=== PATIENT | female | born 1960 | race Caucasian/White ===

== ENCOUNTER 2016-08-11 12:55 | Inpatient (IN) | payer OTHER ==
--- NOTE | ~2016-08-11 | DS ---
Discharge Summary [facility] [address] [place]. [address] NAME: CECI DOUGHERTY : 56 STATUS : DIS IN PAT#: [id number] AGE: 56 ADM/REG DATE : 08/11/16 MR#: [id number] REPORT SERV DATE: 08/26/16 DICTATED BY: LIONEL MONROY DATE: 08/17/16 REPORT STATUS : Draft TRANSCRIBED BY: MODL DATE: 08/17/16 ADMISSION DATE: 08/11/2016 DISCHARGE DATE: HOSPITAL COURSE: This dictation is in addition to interim discharge summary dictated by Dr. John Bolton on 08/16/2016. In addition, I assumed care of the patient today 08/17/2016. At the time of my assumption of care, the patient was hemodynamically stable and awaiting placement at SNF. Approval has been received from insurance [employer] and the patient has been accepted by [facility]. Also, as of yesterday, the patient still had a drain in place which has subsequently been discontinued by Cardiothoracic Surgery. The patient has remained hemodynamically stable. Given clearance by Cardiothoracic Surgery, the patient will be discharged to rehab today to follow up with consultants as outpatient. Plan has been discussed with the patient, who voices understanding and who is agreeable with this plan. DISCHARGE DIAGNOSES: 1. Recurrent lung cancer stage IV. 2. Malignant pericardial effusion. 3. Coronary artery disease. 4. Hypertension. 5. Hypothyroidism. 6. History of breast cancer. DISCHARGE EXAM: GENERAL: The patient is lying in bed, in no acute distress. Appears stated age. HEENT: Normocephalic and atraumatic. Extraocular motors intact. Moist oral mucosa. NECK: Trachea midline and symmetric. No JVD noted. No thyromegaly present. CHEST: Clean surgical site noted. No erythema or evidence of infection. CARDIOVASCULAR: Regular rate and rhythm. S1, S2. I do not appreciate any murmurs. LUNGS: Normal respiratory effort with equal chest expansion. ABDOMEN: Positive bowel sounds. Nontender. Nondistended. EXTREMITIES: No cyanosis, no clubbing, no edema. NEUROLOGIC: Alert and oriented x3. No focal deficits appreciated. DISCHARGE MEDICATIONS: Aspirin 81 mg p.o. daily, Dulcolax 10 mg p.o. daily, Bumex 1 mg p.o. twice a day, carvedilol 12.5 mg p.o. twice a day, Synthroid 25 mcg p.o. daily, Nexium 40 mg p.o. daily, MiraLAX powder one pack p.o. daily, valacyclovir 1 g p.o. three times a day, Effexor 150 mg p.o. daily, warfarin 2.5 mg p.o. daily, zinc sulfate 220 mg p.o. daily, DuoNebs 3 mL inhalation q.4 hours, Flexeril 10 mg p.o. three times a day, rosuvastatin 10 mg p.o. at bedtime. DISPOSITION: The patient will be discharged to rehab. ACTIVITY: As tolerated. DIET: As tolerated. Discharge Summary [address] [address] NAME: CECI DOUGHERTY : 56 STATUS : DIS IN PAT#: [id number] AGE: 56 ADM/REG DATE : 08/11/16 MR#: [id number] REPORT SERV DATE: 08/26/16 DICTATED BY: LIONEL MONROY DATE: 08/17/16 REPORT STATUS : Draft TRANSCRIBED BY: BERLIN DATE: 08/17/16 Greater than 30 minutes was spent coordinating care, providing counseling, medication reconciliation, review of the chart. ADDENDUM Correction: The patient was accepted by Physical Facility, however, insurance approval was still pending. Insurance approval has been received today. The patient is cleared to be discharged to [facility]. All other information on the discharge summary remains the same. Greater than 30 minutes was spent coordinating care, dictation of note, medication reconciliation. DICTATED BY: MD BIMAL Roberts/BERLIN Lionel Monroy MD / [id number] / [id number] CC: MD Panda Roberts M.D. [facility]
--- NOTE | ~2016-08-11 | OP ---
Record Of Operation [facility] [address] [place]. [address] NAME: CECI DOUGHERTY : 56 STATUS : ADM IN [facility]#: [id number] AGE: 56 ADM/REG DATE : 08/11/16 MR#: [id number] REPORT SERV DATE: 08/12/16 DICTATED BY: MICHELE CARLOS DATE: 08/12/16 REPORT STATUS : Draft TRANSCRIBED BY: MODL DATE: 08/12/16 DATE OF PROCEDURE: 08/12/2016 ATTENDING PHYSICIAN: Michele Carlos MD ASSISTANTS: Reji Adkins. REFERRING PHYSICIAN: Surendra Tellez M.D. PREOPERATIVE DIAGNOSES: 1. Large pericardial effusion with impending tamponade. 2. History of right upper lobe lung cancer. 3. History of left breast cancer. POSTOPERATIVE DIAGNOSES: 1. Large pericardial effusion with impending tamponade. 2. History of right upper lobe lung cancer. 3. History of left breast cancer. OPERATION AND PROCEDURE PERFORMED: 1. Subxiphoid pericardial window. 2. Transesophageal echo. COMPLICATIONS: None. ESTIMATED BLOOD LOSS: Minimal. INTRAOPERATIVE FINDINGS: 610 mL of sanguinous pericardial fluid. No studding of the pericardium or the epicardium. A 24-Khmer Jass was left in the pericardial space. INDICATIONS FOR PROCEDURE: Ms. Dougherty is a 56-year-old female with a recent stroke who was discovered to have a large pericardial effusion after she received echocardiogram to look for the etiology of her stroke. She was felt to have pending tamponade type physiology and was transferred from [facility] for further evaluation and treatment. She underwent chest CT, which demonstrated a large circumferential pericardial effusion and an enlarged cardiac silhouette. No large pleural effusion was seen. The patient was seen and evaluated. Risks, benefits, and alternatives were discussed including but not limited to bleeding, infection, stroke, , heart attack, need for future operations. All questions were answered. DETAILS OF PROCEDURE: The patient was brought to the operating room, placed supine on the operating room table. After satisfactory induction of general endotracheal anesthesia, she was prepped and draped in usual sterile fashion. She tolerated the anesthesia and induction well. After she was prepped, a 3 cm incision was made over the xiphoid. Skin and subcutaneous tissues were divided, clavipectoral fascia was divided. The linea alba was divided in the midline. The xiphoid was split, retractor was placed under the xiphoid in Record Of Operation [address] [place]. [address] NAME: CECI DOUGHERTY : 56 STATUS : ADM IN [facility]#: [id number] AGE: 56 ADM/REG DATE : 08/11/16 MR#: [id number] REPORT SERV DATE: 08/12/16 DICTATED BY: MICHELE CARLOS DATE: 08/12/16 REPORT STATUS : Draft TRANSCRIBED BY: BERLIN DATE: 08/12/16 the bottom portion of sternum and elevated and dissection was carried up to the pericardium. Pericardium was grasped, elevated, nicked, and sanguinous fluid was removed, approximately 610 mL in total. Fluid was sent for Gram stain, culture, and cytology. The fluid was evacuated. A quarter size piece of pericardium was excised and sent for pathology. A 24- Khmer Jass was placed in the pericardial space and exteriorized. Tap block was then used to anesthetize the incision, and the fascial incision was closed with a running #1 Stratafix, subcutaneous tissue was closed with a continuation of the running #1 Stratafix, and skin closed with 2-0 Quill. Dry sterile dressings were placed. Chest tube was placed to a bottle, and she was extubated and taken to PACU in satisfactory condition. [facility]/[place] Michele Carlos MD / [id number] CC: Ansley Carranza M.D. Andrew H Fowler, M.D.
--- NOTE | ~2016-08-11 | IDS ---
Interim Discharge Summary [facility] [address] [place]. [address] NAME: CECI DOUGHERTY : 56 STATUS : ADM IN PAT#: [id number] AGE: 56 ADM/REG DATE : 08/11/16 MR#: [id number] REPORT SERV DATE: 08/16/16 DICTATED BY: CASEY AVENDANO DATE: 08/16/16 REPORT STATUS : Draft TRANSCRIBED BY: MODL DATE: 08/16/16 ADMISSION DATE: 08/11/2016 DISCHARGE DATE: CURRENT HOSPITAL DIAGNOSES: 1. Pericardial effusion status post window. 2. Recurrent lung cancer. 3. CVA. 4. History of breast cancer. 5. Hypertension. 6. Hypothyroidism. CONSULTATIONS: Cardiothoracic Surgery, Cardiology, and Neurology. PROCEDURES: As listed in interim summary on 08/12/2016, with the addition of a pericardial window. CURRENT PHYSICAL FINDINGS AND HISTORY OF PRESENT ILLNESS: Please see initial dictated H and P on 08/10/2016, as well as discharge summary on 08/12/2016, from [facility]. Dictation will continue from that time. Basically, the patient was transferred for further evaluation and treatment of a pericardial effusion with previous history of colon and breast cancer on 08/11/2016. The patient had been seen by Cardiology, had an echocardiogram performed. There was no tamponade, but recommendations were to consult Cardiothoracic Surgery for possible pericardial window. The patient was transferred here on 08/11/2016 and underwent evaluation additionally by Neurology as she was found to have multiple CVAs on evaluation over at [facility]. PT/OT was consulted and the patient progressed well with that. She underwent the pericardial window without difficulty. She still has a drain in place. Pathology was submitted, which has since come back as probable recurrent lung carcinoma but final stains are pending. The patient continues with PT/OT and is hoping for placement at [facility] soon. Cardiology recommended starting Coumadin anticoagulation given her pattern of emboli concerned for embolic. This has been started. Oncology has been consulted and will follow up outpatient. DISPOSITION: The patient is currently awaiting placement at rehab and remove liver drain. TLF/MODL Casey Avendano M.D. / [id number] CC: Interim Discharge Summary [address] [address] NAME: CECI DOUGHERTY : 56 STATUS : ADM IN PAT#: [id number] AGE: 56 ADM/REG DATE : 08/11/16 MR#: [id number] REPORT SERV DATE: 08/16/16 DICTATED BY: CASEY AVENDANO DATE: 08/16/16 REPORT STATUS : Draft TRANSCRIBED BY: MODL DATE: 08/16/16 Ansley Carranza M.D.
--- NOTE | ~2016-08-11 | CN ---
Consultation Report [address] [place]. [address] NAME: CECI DOUGHERTY : 56 STATUS : ADM IN PAT#: [id number] AGE: 56 ADM/REG DATE : 08/11/16 MR#: [id number] REPORT SERV DATE: 08/12/16 DICTATED BY: ROSALBA SANTOS DATE: 08/11/16 REPORT STATUS : Draft TRANSCRIBED BY: MODL DATE: 08/11/16 CONSULT REPORT DATE OF CONSULTATION: 08/11/2016 REASON FOR CONSULTATION: Pericardial effusion. HISTORY OF PRESENT ILLNESS: This is a pleasant 56-year-old female with extensive past medical history as listed below. She presents to the emergency room at [facility] yesterday with slurred speech, facial droop, and left upper extremity weakness. She was found also be slightly hyponatremia. MRI of the brain showed multiple bilateral cerebral infarcts as well as a larger lacunar infarct in the right thalamus. Carotid ultrasound was normal, but echocardiogram today showed a large circumferential pericardial effusion with significant increased pericardial pressures, but no obvious tamponade. She did have a bubble study which was negative. Cardiothoracic Surgery was asked to evaluate the patient for urgent pericardial window, suspecting advancement to full-blown tamponade soon. Currently, the patient is resting quietly with no complaints of shortness of breath or chest pain. She does report a "splitting headache" without any other neurological deficits like difficulty speaking or blurred vision. PAST MEDICAL HISTORY: Coronary artery disease with prior stent, GERD, anxiety, depression, hypertension, hypothyroidism, breast cancer status post mastectomy, restless legs syndrome, lung cancer status post right upper lobe lobectomy in 2013. PAST SURGICAL HISTORY: Right upper lobe lobectomy [place] [address] Maykel Cox. Cardiac stent 20 years ago and bilateral mastectomies. SOCIAL HISTORY: She is . Denies any history of alcohol use or illicit drugs. She does report frequent use of tobacco. FAMILY HISTORY: Reviewed and noncontributory. ALLERGIES: SHE REPORTS AN ALLERGY TO CODEINE. HOME MEDICATIONS: Aspirin 81 mg p.o. daily, Bumex 1 mg p.o. daily, Coreg 12.5 mg p.o. twice a day, Klonopin 1 mg p.o. twice a day as needed, Flexeril 10 mg p.o. three times a day as needed, Nexium 40 mg p.o. daily, Synthroid 25 mcg p.o. daily, Benicar hydrochlorothiazide 40/12.5 one tablet p.o. daily, Crestor 10 mg p.o. at bedtime, Valtrex 1 g p.o. three times a day, Effexor 150 mg p.o. daily, and Ambien 10 mg p.o. at bedtime. REVIEW OF SYSTEMS: A 10-point review of systems was obtained and is negative other than HPI. PHYSICAL EXAMINATION: Consultation Report [id number] [facility] [place]. [address] NAME: CECI DOUGHERTY : 56 STATUS : ADM IN PAT#: [id number] AGE: 56 ADM/REG DATE : 08/11/16 MR#: [id number] REPORT SERV DATE: 08/12/16 DICTATED BY: ROSALBA SANTOS DATE: 08/11/16 REPORT STATUS : Draft TRANSCRIBED BY: BERLIN DATE: 08/11/16 VITAL SIGNS: From today, temperature 98.2, heart rate 81, blood pressure 151/67, respiratory rate 18, and O2 saturation 97% on 2 L. GENERAL: Pleasant female, in no acute distress. NEURO: Alert and oriented x3. Pupils are equal, round, reactive to light and accommodation. She does exhibit decreased strength bilaterally, but this is much more noticeable in her left upper extremity and left lower extremity. No obvious signs of facial droop. HEENT: Head normocephalic and atraumatic. Sclerae clear. Nose is midline with no abnormalities. Teeth with good dentition overall. Ears with no abnormalities. LUNGS: Clear to auscultation bilaterally with normal effort. CARDIAC: S1, S2. No murmurs, rubs, or gallops. Regular rate and rhythm. ABDOMEN: Soft, nontender with active bowel sounds. EXTREMITIES: Free of cyanosis, clubbing, or edema. LABORATORY DATA: White blood cell count 8.2, hemoglobin 9.6, hematocrit 28.3, platelets 295. Sodium 134, potassium 4.3, chloride 97, bicarbonate 28, BUN 19, creatinine 1.0, glucose 95. ASSESSMENT AND PLAN: This is a 56-year-old female with extensive past medical history significant for breast cancer, lung cancer, coronary artery disease, hypertension, and ongoing tobacco abuse. She presented to [place] emergency room yesterday with neurological symptoms. MRI showed acute embolic CVA. Echocardiogram today showed a circumferential pericardial effusion with negative bubble study concerning for advancement to cardiac tamponade. The patient will need to undergo urgent pericardial window. We will plan this tomorrow morning at 7:30 in the morning. I discussed the procedure with the patient as well as the indication and options. We also discussed risks and benefits of surgery as well as expectations for recovery and followup. The patient is agreeable to proceed. Would like to get a CT scan of the chest without contrast today to evaluate for any other chest or lung abnormalities. We appreciate the referral and look forward to helping and take care of Ms. Ccei Dougherty. LATASHA/BERLIN Rosalba Santos NP / [id number] CC: John Bolton M.D.
--- NOTE | ~2016-08-11 | CN ---
Consultation Report [facility] [address] [place]. [address] NAME: CECI DOUGHERTY : 56 STATUS : ADM IN PAT#: [id number] AGE: 56 ADM/REG DATE : 08/11/16 MR#: [id number] REPORT SERV DATE: 08/11/16 DICTATED BY: IVETTE BORWN DATE: 08/11/16 REPORT STATUS : Draft TRANSCRIBED BY: MODCelso DATE: 08/11/16 NEUROLOGY CONSULTATION DATE OF CONSULTATION: 08/11/2016 REASON FOR CONSULTATION: Stroke. HOSPITALIST: John Bolton M.D. DIRECTOR OF STRATEGIC SOURCING: Moris Blair M.D. HISTORY OF PRESENT ILLNESS: The patient is a 56-year-old female, who was admitted to [facility] yesterday, due to sudden onset of slurred speech, left facial droop, and left arm weakness. She stated that her symptoms started suddenly that morning and she also had an associated right-sided headache. She had an MRI over at [facility] which showed embolic stroke. She was brought over to [facility] for further testing. Today, she underwent a transthoracic echocardiogram which showed an LVEF of 50%, large pericardial effusion, with right atrial free wall inversion, and she had a negative bubble study. Because of the large effusion, the patient will undergo a pericardial window with transesophageal echocardiogram tomorrow. The patient mentions that she has had severe headache since this morning, on a Likert scale of 0-10, she rates it a 7/10. She denies any photophobia or phonophobia. She just has pressure primarily in the frontal region. She has no associated nausea and vomiting. PAST MEDICAL HISTORY: GERD, hypothyroidism, anxiety, depression, coronary artery disease, hypertension, breast cancer, lung cancer, restless legs syndrome, and HSV. PAST SURGICAL HISTORY: Status post PCI, status post bilateral mastectomy, status post right upper lobe lobectomy. HOME MEDICATIONS: Aspirin 81 mg daily, Bumex 1 mg b.i.d., Coreg 12.5 mg b.i.d., Klonopin 1 mg b.i.d. p.r.n., Flexeril 10 mg t.i.d. p.r.n., Nexium 40 mg daily, levothyroxine 25 mcg daily, Benicar HCT 40/12.5 mg daily, Crestor 10 mg at bedtime, Valtrex 1 g t.i.d., Effexor 150 mg daily, and Ambien 10 mg p.o. at bedtime p.r.n. ALLERGIES: CODEINE. SOCIAL HISTORY: The patient is . She has one child. She works as a bulk delivery driver. She smokes. She occasionally have an alcoholic beverage and denies use of recreational drugs. FAMILY HISTORY: The patient's mother at 65 from lung cancer. Her father at the age of 52 from an CO. She has two sisters, who are alive and healthy. Consultation Report [id number] [facility] [place]. [address] NAME: CECI DOUGHERTY : 56 STATUS : ADM IN [facility]#: [id number] AGE: 56 ADM/REG DATE : 08/11/16 MR#: [id number] REPORT SERV DATE: 08/11/16 DICTATED BY: IVETTE BROWN DATE: 08/11/16 REPORT STATUS : Draft TRANSCRIBED BY: BERLIN DATE: 08/11/16 REVIEW OF SYSTEMS: For pertinent positives, please see HPI. PHYSICAL EXAMINATION: VITAL SIGNS: The patient is a 56-year-old female, who stands 5 feet tall, and weighs 157 pounds. She is slightly febrile with a temperature of 99 degrees, heart rate 90, respiratory rate 18, O2 saturations on room air 97%, blood pressure 167/89. NEURO: The patient appears to be in moderate discomfort. She is oriented x4. She communicates appropriately. She is slightly dysarthric. Pupils are 3 mm. PERRLA. The patient does have left facial droop. Slight tongue deviation to the left. No reported sensory deficits in the trigeminal region. [id number] reveals slight ataxia bilaterally. No pronator drift. The patient has some weakness in the upper extremities on the left, it is 3/5. Right is 5/5. Diminished DTRs on the left 1+ compared to the right which is 2+. No reported sensory loss in the upper extremities. Lower extremities, strength is 3/5 on the left, compared to a 5/5 on the right. Unable to elicit patellar reflex on the left. Downgoing toes on the left. Patellar reflex on the right is 2+, downgoing toes on the left. No reported sensory deficits. There is no extinction noted. Peripheral vision via confrontation is full on both louise. Funduscopic exam, positive red reflex bilaterally. Normal disc cup ratio. No nicking, hemorrhaging, or papillary edema. NECK: No carotid bruits, JVD, or thyromegaly. CHEST: Lung sounds relatively clear. No cough. CARDIAC: Regular rate and rhythm. LABORATORY DATA: CBC is normal. BMP normal. Troponin 1.01, TSH 4.66. Cholesterol values are within normal range. MRI of the brain shows a cavernous angioma signal hyperintensities in the right thalamic region, left occipital, and bilateral cerebellar areas resulting in multiple emboli. MRA of the head and neck unremarkable. Echocardiogram, LVEF 50%, large pericardial effusion. Negative bubble, right atrium shows free wall inversion. NIH Stroke Scale total is 5. ASSESSMENT/PLAN: 1. Embolic stroke. Etiology unknown at this time. The patient is on aspirin, Plavix, and Lipitor. After speaking with Cardiothoracic Surgery, the patient's Plavix will be held for a pericardial window procedure tomorrow. PT, OT, and rehab will be consulted. Additional lab work will be checked to rule out anything autoimmune. 2. Severe headache, the patient will be given a Depakote cocktail. 3. Pericardial effusion. This will be managed per Cardiology and CT surgery. 4. Etiology of stroke is unknown. The patient may undergo loop recorder implantation prior to discharge. CLAUDIA/BERLIN Ivette Garcia Consultation Report [address] [address] NAME: CECI DOUGHERTY : 56 STATUS : ADM IN [facility]#: [id number] AGE: 56 ADM/REG DATE : 08/11/16 MR#: [id number] REPORT SERV DATE: 08/11/16 DICTATED BY: IVETTE BROWN DATE: 08/11/16 REPORT STATUS : Draft TRANSCRIBED BY: MODL DATE: 08/11/16 MOISES Brown, MADELINEP- / [id number] CC: John Bolton M.D. Ansley Duarte M.D.
[~2016-08-11 12:55] MED LIST: AMB10 PO; ASA5GR PO; ASAB PO; BENICAR HCT1 TA1 PO; BENICAR HCT1 TA2 PO; BUM1 PO; CALGLUCTAB PO; CHANTIX1 PO; COREG12 PO; CRESTOR10 PO; DIOVAN HCT320 MG/25 PO; EFFEX37.5 PO; EFFEXOR100 MG PO; FLEX PO; IRON325 MG PO; KDUR20 PO; KLONO1 PO; LEVOTHYROXIN25 MCG PO; LIPITOR10 PO; LORTAB 5 PO; MIRAPEX5 PO; NEXIUM40 PO; PCET PO; SYN.025B PO; VALTREX1 GM PO; VALTREX5 PO; VITD PO; X25 PO
[2016-08-11 17:52] LABS: C-REACTIVE PROTEIN 91.2 MG/L (<8.0)
[2016-08-12 05:50] LABS: BASOPHILS 0.5 %; BASOPHILS ABSOLUTE 0.04 10/3/uL (0.0-0.16); EOSINOPHILS 1.1 %; EOSINOPHILS ABSOLUTE 0.09 10/3/uL (0.0-0.53); HEMOGLOBIN 8.4 g/dL (12.0-16.0); IMMATURE GRANULOCYTES 0.5 %; IMMATURE GRANULOCYTES ABSOLUTE 0.04 10/3/uL (0.0-0.11); LYMPHOCYTES 18.2 %; LYMPHOCYTES ABSOLUTE 1.48 10/3/uL (0.67-4.30); MEAN CORPUS HGB CONC 34.1 g/dL (32.0-36.0); MEAN CORPUSCULAR HEMOGLOB 30.7 pg (26.0-34.0); MEAN CORPUSCULAR VOLUME 89.8 fL (80-100); MEAN PLATELET VOLUME 8.6 fL (9.2-13.0); MONOCYTES 10.1 %; MONOCYTES ABSOLUTE 0.82 10/3/uL (0.21-1.20); NEUTROPHILS 69.6 %; NEUTROPHILS ABSOLUTE 5.66 10/3/uL (2.02-8.40); PLATELET COUNT 271 10/3/uL (150-400); RBC DISTRIBUTION WIDTH 14.5 % (12.0-16.0); RED CELL COUNT 2.74 10/6/uL (4.0-5.6); WHITE BLOOD CELLS 8.1 10/3/uL (4.5-10.5)
[2016-08-12 05:51] LABS: HEMATOCRIT 24.6 % (36.0-48.0); MANUAL DIFF NO %
[2016-08-12 05:57] LABS: INTERNATIONAL NORMAL RATI 1.3 UNITS (-); PARTIAL THROMBO TIME 38.2 SEC (22.5-37.2); PROTIME (NOT ORD) 15.9 SEC (12.0-14.5)
[2016-08-12 06:13] LABS: ALBUMIN 3.1 G/DL (3.5-5.0); BUN (BLOOD UREA NITROGEN) 17 MG/DL (6-23); CALCIUM, SERUM 8.7 MG/DL (8.5-10.4); CHLORIDE, SERUM 101 MMOL/L (96-112); CO2 (CARBON DIOXIDE) 22 MMOL/L (24-34); CREATININE 1.01 MG/DL (0.55-1.02); GFR AFRICAN AMERICAN 71 ML/MIN (>=60); GFR NON AFRICAN AMERICAN 61 ML/MIN (>=60); GLUCOSE, SERUM 114 MG/DL (60-99); PHOSPHORUS, SERUM 3.6 MG/DL (2.5-4.5); POTASSIUM, SERUM 4.7 MMOL/L (3.5-5.3); SODIUM, SERUM 131 MMOL/L (135-148)
[2016-08-12 09:45] LABS: RHEUMATOID FACTOR QUANT < 10 IU/ML (0-15)
[2016-08-12 09:51] LABS: BASOPHILS 0.3 %; BASOPHILS ABSOLUTE 0.03 10/3/uL (0.0-0.16); EOSINOPHILS 1.2 %; HEMATOCRIT 25.8 % (36.0-48.0); HEMOGLOBIN 8.8 g/dL (12.0-16.0); IMMATURE GRANULOCYTES 1.2 %; LYMPHOCYTES 14.8 %; LYMPHOCYTES ABSOLUTE 1.28 10/3/uL (0.67-4.30); MEAN CORPUS HGB CONC 34.1 g/dL (32.0-36.0); MEAN CORPUSCULAR HEMOGLOB 30.7 pg (26.0-34.0); MEAN CORPUSCULAR VOLUME 89.9 fL (80-100); MEAN PLATELET VOLUME 8.8 fL (9.2-13.0); MONOCYTES 8.2 %; MONOCYTES ABSOLUTE 0.71 10/3/uL (0.21-1.20); NEUTROPHILS 74.3 %; NEUTROPHILS ABSOLUTE 6.44 10/3/uL (2.02-8.40); PLATELET COUNT 245 10/3/uL (150-400); RBC DISTRIBUTION WIDTH 14.5 % (12.0-16.0); RED CELL COUNT 2.87 10/6/uL (4.0-5.6); WHITE BLOOD CELLS 8.7 10/3/uL (4.5-10.5)
[2016-08-12 09:52] LABS: MANUAL DIFF NO %
[2016-08-12 10:04] LABS: BUN (BLOOD UREA NITROGEN) 16 MG/DL (6-23); CALCIUM, SERUM 8.6 MG/DL (8.5-10.4); CHLORIDE, SERUM 100 MMOL/L (96-112); CO2 (CARBON DIOXIDE) 24 MMOL/L (24-34); CREATININE 1.04 MG/DL (0.55-1.02); GFR AFRICAN AMERICAN 69 ML/MIN (>=60); GFR NON AFRICAN AMERICAN 59 ML/MIN (>=60); GLUCOSE, SERUM 131 MG/DL (60-99); POTASSIUM, SERUM 4.8 MMOL/L (3.5-5.3); SODIUM, SERUM 131 MMOL/L (135-148)
[2016-08-12 10:52] LABS: ANTI SS-A NEGATIVE (NEGATIVE); ANTI SS-B NEGATIVE (NEGATIVE)
[2016-08-12 15:16] LABS: FERRITIN 80 NG/ML (8-252); FOLATE 12.8 NG/ML (>5.2); IRON BINDING CAPACITY 296 MCG/DL (225-410); IRON, SERUM 45 MCG/DL (35-150)
[2016-08-13 08:37] LABS: BASOPHILS 0.1 %; BASOPHILS ABSOLUTE 0.01 10/3/uL (0.0-0.16); EOSINOPHILS 0 %; HEMATOCRIT 25.8 % (36.0-48.0); IMMATURE GRANULOCYTES 0.4 %; IMMATURE GRANULOCYTES ABSOLUTE 0.07 10/3/uL (0.0-0.11); LYMPHOCYTES ABSOLUTE 1.31 10/3/uL (0.67-4.30); MEAN CORPUS HGB CONC 34.9 g/dL (32.0-36.0); MEAN PLATELET VOLUME 8.8 fL (9.2-13.0); MONOCYTES ABSOLUTE 1.31 10/3/uL (0.21-1.20); NEUTROPHILS 83.5 %; NEUTROPHILS ABSOLUTE 13.61 10/3/uL (2.02-8.40); PLATELET COUNT 276 10/3/uL (150-400); RBC DISTRIBUTION WIDTH 14.4 % (12.0-16.0)
[2016-08-13 08:38] LABS: MANUAL DIFF NO %; WHITE BLOOD CELLS 16.3 10/3/uL (4.5-10.5)
[2016-08-13 08:48] LABS: CALCIUM, SERUM 9.2 MG/DL (8.5-10.4); CHLORIDE, SERUM 101 MMOL/L (96-112); CO2 (CARBON DIOXIDE) 24 MMOL/L (24-34); CREATININE 0.83 MG/DL (0.55-1.02); GFR AFRICAN AMERICAN 90 ML/MIN (>=60); GFR NON AFRICAN AMERICAN 78 ML/MIN (>=60); GLUCOSE, SERUM 112 MG/DL (60-99); PHOSPHORUS, SERUM 3.3 MG/DL (2.5-4.5); POTASSIUM, SERUM 4.5 MMOL/L (3.5-5.3); SODIUM, SERUM 134 MMOL/L (135-148)
[2016-08-13 08:50] LABS: BUN (BLOOD UREA NITROGEN) 10 MG/DL (6-23)
[2016-08-13 11:48] LABS: ANA TITER <1:40 TITER
[2016-08-13 21:27] LABS: ANCA <1:20 (()); MYELOPEROXIDASE ANTIBODY <0.2 AI (<1.0); PROTEINASE 3 ANTIBODY <0.2 AI (<1.0)
[2016-08-14 04:44] LABS: BASOPHILS 0.4 %; BASOPHILS ABSOLUTE 0.04 10/3/uL (0.0-0.16); EOSINOPHILS 2.1 %; EOSINOPHILS ABSOLUTE 0.22 10/3/uL (0.0-0.53); HEMOGLOBIN 8.9 g/dL (12.0-16.0); IMMATURE GRANULOCYTES 0.5 %; IMMATURE GRANULOCYTES ABSOLUTE 0.05 10/3/uL (0.0-0.11); LYMPHOCYTES 19.9 %; LYMPHOCYTES ABSOLUTE 2.13 10/3/uL (0.67-4.30); MEAN CORPUS HGB CONC 34.2 g/dL (32.0-36.0); MEAN CORPUSCULAR HEMOGLOB 31.1 pg (26.0-34.0); MEAN CORPUSCULAR VOLUME 90.9 fL (80-100); MEAN PLATELET VOLUME 8.7 fL (9.2-13.0); MONOCYTES 10.9 %; MONOCYTES ABSOLUTE 1.17 10/3/uL (0.21-1.20); NEUTROPHILS 66.2 %; NEUTROPHILS ABSOLUTE 7.11 10/3/uL (2.02-8.40); PLATELET COUNT 304 10/3/uL (150-400); RBC DISTRIBUTION WIDTH 14.5 % (12.0-16.0); RED CELL COUNT 2.86 10/6/uL (4.0-5.6); WHITE BLOOD CELLS 10.7 10/3/uL (4.5-10.5)
[2016-08-14 04:45] LABS: MANUAL DIFF NO %
[2016-08-14 04:54] LABS: INTERNATIONAL NORMAL RATI 1.4 UNITS (-); PROTIME (NOT ORD) 16.7 SEC (12.0-14.5)
[2016-08-15 05:28] LABS: INTERNATIONAL NORMAL RATI 2.8 UNITS (-)
[2016-08-16 04:42] LABS: INTERNATIONAL NORMAL RATI 2.3 UNITS (-)
[2016-08-17 05:45] LABS: INTERNATIONAL NORMAL RATI 2.2 UNITS (-)
[2016-08-18 05:18] LABS: INTERNATIONAL NORMAL RATI 2.3 UNITS (-)
[2016-08-19 04:38] LABS: BASOPHILS 0.6 %; BASOPHILS ABSOLUTE 0.06 10/3/uL (0.0-0.16); EOSINOPHILS 4.3 %; EOSINOPHILS ABSOLUTE 0.45 10/3/uL (0.0-0.53); IMMATURE GRANULOCYTES 0.2 %; IMMATURE GRANULOCYTES ABSOLUTE 0.02 10/3/uL (0.0-0.11); LYMPHOCYTES 23.7 %; LYMPHOCYTES ABSOLUTE 2.46 10/3/uL (0.67-4.30); MEAN CORPUS HGB CONC 34.1 g/dL (32.0-36.0); MEAN CORPUSCULAR HEMOGLOB 30.4 pg (26.0-34.0); MEAN CORPUSCULAR VOLUME 89.2 fL (80-100); MEAN PLATELET VOLUME 8.7 fL (9.2-13.0); MONOCYTES 8.2 %; MONOCYTES ABSOLUTE 0.85 10/3/uL (0.21-1.20); NEUTROPHILS ABSOLUTE 6.55 10/3/uL (2.02-8.40); RBC DISTRIBUTION WIDTH 14.2 % (12.0-16.0); WHITE BLOOD CELLS 10.4 10/3/uL (4.5-10.5)
[2016-08-19 04:42] LABS: HEMATOCRIT 32.3 % (36.0-48.0); MANUAL DIFF NO %; PLATELET COUNT 523 10/3/uL (150-400); RED CELL COUNT 3.62 10/6/uL (4.0-5.6)
[2016-08-19 04:45] LABS: INTERNATIONAL NORMAL RATI 2.1 UNITS (-); PROTIME (NOT ORD) 23.1 SEC (12.0-14.5)
[2016-08-19 04:54] LABS: A/G RATIO 0.7 (0.7-1.9); ALBUMIN 3.1 G/DL (3.5-5.0); BUN (BLOOD UREA NITROGEN) 9 MG/DL (6-23); CALCIUM, SERUM 8.8 MG/DL (8.5-10.4); CHLORIDE, SERUM 102 MMOL/L (96-112); CO2 (CARBON DIOXIDE) 23 MMOL/L (24-34); CREATININE 0.59 MG/DL (0.55-1.02); GFR AFRICAN AMERICAN 117 ML/MIN (>=60); GFR NON AFRICAN AMERICAN 101 ML/MIN (>=60); GLOBULIN 4.3 G/DL (2.5-4.1); GLUCOSE, SERUM 104 MG/DL (60-99); POTASSIUM, SERUM 3.9 MMOL/L (3.5-5.3); SGOT(AST) 27 U/L (5-40); SGPT(ALT) 51 U/L (5-65); SODIUM, SERUM 133 MMOL/L (135-148); TOTAL BILIRUBIN 0.4 MG/DL (0-1.2); TOTAL PROTEIN 7.4 G/DL (6.0-8.5)
[2016-08-19 05:00] LABS: ALKALINE PHOSPHATASE 90 U/L (45-117)
[2016-09-14] MEDS ORDERED: REQUIP1 PO (12:28)
[2016-09-14] MEDS ORDERED: FOLIC PO (12:30)
[2016-09-14] MEDS ORDERED: FLOMAX4 PO (12:30)
[2016-09-14] MEDS ORDERED: BENICAR40 PO (12:34)
[2016-09-14] MEDS ORDERED: ELIQUIS 5 MG TAB5 MG PO (12:37)
== END 2016-08-19 16:50 | DRG 270 ==
LOC: 2SO 12:55 → SDC/OF 08-12 09:05 → 5NO 08-12 10:37
PROVIDERS: Hospitalist; Internal Medicine; Nurse Practitioner; Thoracic Surgery (Cardiothoracic Vascular Surgery)
PROC: 0W9D0ZZ Drainage of Pericardial Cavity, Open Approach (ICD-10-PCS; principal; 2016-08-12 07:15)
PROC: B246ZZ4 Ultrasonography of Right and Left Heart, Transesophageal (ICD-10-PCS; 2016-08-12 07:15)
DX: I31.3 Pericardial effusion (noninflammatory) (principal); I63.10 Cerebral infarction due to embolism of unspecified precerebral artery; C34.11 Malignant neoplasm of upper lobe, right bronchus or lung; N17.9 Acute kidney failure, unspecified; G81.94 Hemiplegia, unspecified affecting left nondominant side; C79.89 Secondary malignant neoplasm of other specified sites; E87.1 Hypo-osmolality and hyponatremia; I10 Essential (primary) hypertension; K21.9 Gastro-esophageal reflux disease without esophagitis; E03.9 Hypothyroidism, unspecified; F41.9 Anxiety disorder, unspecified; F32.9 Major depressive disorder, single episode, unspecified; I25.10 Atherosclerotic heart disease of native coronary artery without angina pectoris; G25.81 Restless legs syndrome; F17.210 Nicotine dependence, cigarettes, uncomplicated; Z85.3 Personal history of malignant neoplasm of breast; Z80.1 Family history of malignant neoplasm of trachea, bronchus and lung; Z95.5 Presence of coronary angioplasty implant and graft; Z90.13 Acquired absence of bilateral breasts and nipples; Z90.2 Acquired absence of lung [part of]; Z88.5 Allergy status to narcotic agent; Z82.49 Family history of ischemic heart disease and other diseases of the circulatory system
CPT/HCPCS: 70450; 70544; 70551; 70553; 71010; 71020; 71250; 80048; 80053; 80061; 80069; 80305; 80307; 82607; 82728; 82746; 82962; 83036; 83516; 83516-59; 83540; 83550; 83735; 84100; 84439; 84443; 84484; 85025; 85610; 85652; 85730; 86039; 86140; 86235; 86235-59; 86255; 86256; 86431; 87015; 87070; 87075; 87102; 87116; 87205; 88112; 88305; 88341; 88342; 93005; 93306; 93312; 93320; 93325; 93880; 94640; 97110-GO; 97110-GP; 97112-GO; 97116-GP; 97162-GP; 97165-GO; 97530-GP; 99285; A9270-GY; A9577; G8978-CJ-GP; G8979-CH-GP; J0330; J0690; J0780; J1885; J1940; J2250; J2370; J2405; J2710; J2795; J3010; J3475